=== PATIENT | female | born 1930 | race Caucasian/White ===

== ENCOUNTER 2017-03-26 19:02 | Inpatient (IN) | payer OTHER, MEDICARE ==
[2017-03-26 19:39] LABS: ADD MAN DIFF? NO
[2017-03-26 19:41] LABS: BASO # 0.1 x10^3/uL (0.0-0.2); BASO % 1 % (0-3); EOS # 0.2 x10^3/uL (0.0-0.7); EOS % 2 % (0-3); HEMATOCRIT 39.2 % (36.0-47.0); LYMPH # 1.4 x10^3/uL (1.0-4.8); LYMPH % 15 % (24-48); MEAN CORPUSCULAR HEMOGLOBIN 33 pg (25-35); MEAN CORPUSCULAR HGB CONC 33 g/dL (31-37); MEAN CORPUSCULAR VOLUME 100 fL (79-100); MONO # 0.7 x10^3/uL (0.0-1.1); MONO % 8 % (0-9); NEUT # 7.2 x10^3uL (1.8-7.7); NEUT % 75 % (31-73); PLATELET COUNT 224 x10^3/uL (140-400); RED BLOOD COUNT 3.94 x10^6/uL (3.50-5.40); RED CELL DISTRIBUTION WIDTH 13.8 % (11.5-14.5); WHITE BLOOD COUNT 9.6 x10^3/uL (4.0-11.0)
[2017-03-26] MEDS: IV NORMAL SALINE 1000ML BAG 1,000 ML IV ×2 (19:45→22:37)
[2017-03-26] MEDS: IPRATRPIUM/ALBUTEROL 0.5/2.5MG 3 ML NEBU. NEB (19:51)
[2017-03-26 20:18] LABS: ANION GAP 7 (6-14); BLOOD UREA NITROGEN 38 mg/dL (7-20); BUN/CREATININE RATIO 35 (6-20); CALCIUM 9.3 mg/dL (8.5-10.1); CARBON DIOXIDE 32 mmol/L (21-32); CHLORIDE 103 mmol/L (98-107); CREATININE 1.1 mg/dL (0.6-1.0); GLUCOSE 121 mg/dL (70-99); POTASSIUM 4.1 mmol/L (3.5-5.1); SODIUM 142 mmol/L (136-145)
[2017-03-26 20:24] LABS: ALBUMIN 3.4 g/dL (3.4-5.0); ALK PHOS 85 U/L (46-116); ALT (SGPT) 30 U/L (14-59); AST (SGOT) 17 U/L (15-37); TOTAL BILIRUBIN 0.3 mg/dL (0.2-1.0); TOTAL PROTEIN 6.8 g/dL (6.4-8.2)
[2017-03-26 20:25] LABS: INFLUENZA A PATIENT NEGATIVE (NEGATIVE); INFLUENZA B PATIENT NEGATIVE (NEGATIVE); OBC FLU VALID
[2017-03-26 20:26] LABS: TROPONINI < 0.017 ng/mL (0.000-0.055)
[2017-03-26 20:32] LABS: NT-PRO BNP 761 pg/mL (0-449)
[2017-03-26 20:32] LABS: CREATINE KINASE 28 U/L (26-192)
[2017-03-26 20:33] LABS: CKMB MASS < 0.5 ng/mL (0.0-3.6)
[2017-03-26] MEDS ORDERED: ONDANSETRON PF 4 MG/2 ML VIAL. IV (21:15)
[2017-03-27 00:57] LABS: BILIRUBIN,URINE NEGATIVE (NEG); CLARITY,URINE CLEAR; COLOR,URINE YELLOW; GLUCOSE,URINE NEGATIVE (NEG); NITRITE,URINE NEGATIVE (NEG); PH,URINE 6.5; PROTEIN,URINE NEGATIVE (NEG-TRACE)
[2017-03-27 01:02] LABS: BACTERIA,URINE MANY /HPF (0-FEW); RBC,URINE 0 /HPF (0-2); SQUAMOUS EPITHELIAL CELL,UR OCC /LPF
[2017-03-27] MEDS: ACETAMINOPHEN 325 MG TABLET. PO ×3 (01:32→21:16)
[2017-03-27 03:35] LABS: ADD MAN DIFF? NO
[2017-03-27 03:41] LABS: BASO # 0.1 x10^3/uL (0.0-0.2); BASO % 1 % (0-3); EOS # 0.1 x10^3/uL (0.0-0.7); EOS % 2 % (0-3); HEMOGLOBIN 11.7 g/dL (12.0-15.5); LYMPH # 1.4 x10^3/uL (1.0-4.8); LYMPH % 21 % (24-48); MEAN CORPUSCULAR HEMOGLOBIN 33 pg (25-35); MEAN CORPUSCULAR HGB CONC 33 g/dL (31-37); MEAN CORPUSCULAR VOLUME 99 fL (79-100); MONO # 0.7 x10^3/uL (0.0-1.1); MONO % 10 % (0-9); NEUT # 4.6 x10^3uL (1.8-7.7); NEUT % 67 % (31-73); PLATELET COUNT 181 x10^3/uL (140-400); RED BLOOD COUNT 3.54 x10^6/uL (3.50-5.40); RED CELL DISTRIBUTION WIDTH 13.5 % (11.5-14.5); WHITE BLOOD COUNT 6.9 x10^3/uL (4.0-11.0)
[2017-03-27 04:07] LABS: ANION GAP 7 (6-14); BLOOD UREA NITROGEN 33 mg/dL (7-20); CARBON DIOXIDE 31 mmol/L (21-32); CHLORIDE 106 mmol/L (98-107); GFR 52.4; GLUCOSE 104 mg/dL (70-99); POTASSIUM 3.6 mmol/L (3.5-5.1); SODIUM 144 mmol/L (136-145)
[2017-03-27] MEDS: IPRATRPIUM/ALBUTEROL 0.5/2.5MG 3 ML NEBU. NEB ×4 (07:50→20:29)
[2017-03-27] MEDS: IV NORMAL SALINE 1000ML BAG 1,000 ML IV (16:54)
[2017-03-27] MEDS ORDERED: CLOTRIMAZOLE 1% TOPICAL CREAM 15GM TUBE. TP (18:30)
[2017-03-27] MEDS ORDERED: NITROGLYCERIN SUBLINGUAL 0.4 MG BOTTLE OF 25. SL (18:30)
[2017-03-27] MEDS ORDERED: FLUTICASONE 50MCG/NASAL SPRAY 16GM BOTTLE. NS (18:30)
[2017-03-27] MEDS ORDERED: CITALOPRAM 20 MG TABLET. PO (19:00)
[2017-03-27] MEDS: SIMETHICONE 80 MG TAB.CHEW PO (21:16)
[2017-03-27] MEDS: CITALOPRAM 10 MG TABLET. PO (21:16)
[2017-03-27] MEDS: FUROSEMIDE 20 MG/2 ML VIAL. IVP (21:16)
[2017-03-27] MEDS: CARVEDILOL 12.5 MG TABLET. PO (21:17)
[2017-03-27] MEDS: ENOXAPARIN 40 MG/0.4 ML SYRINGE. SQ (21:17)
[2017-03-28 04:31] LABS: ANION GAP 7 (6-14); BLOOD UREA NITROGEN 27 mg/dL (7-20); CALCIUM 8.9 mg/dL (8.5-10.1); CARBON DIOXIDE 31 mmol/L (21-32); CHLORIDE 106 mmol/L (98-107); CREATININE 0.9 mg/dL (0.6-1.0); GFR 59.2; GLUCOSE 101 mg/dL (70-99); POTASSIUM 3.8 mmol/L (3.5-5.1); SODIUM 144 mmol/L (136-145)
[2017-03-28 05:15] LABS: ADD MAN DIFF? NO
[2017-03-28 05:33] LABS: BASO % 1 % (0-3); EOS # 0.1 x10^3/uL (0.0-0.7); EOS % 2 % (0-3); HEMATOCRIT 34.5 % (36.0-47.0); HEMOGLOBIN 11.4 g/dL (12.0-15.5); LYMPH # 1.7 x10^3/uL (1.0-4.8); LYMPH % 26 % (24-48); MEAN CORPUSCULAR HEMOGLOBIN 33 pg (25-35); MEAN CORPUSCULAR HGB CONC 33 g/dL (31-37); MEAN CORPUSCULAR VOLUME 100 fL (79-100); MONO # 0.6 x10^3/uL (0.0-1.1); MONO % 9 % (0-9); NEUT % 62 % (31-73); PLATELET COUNT 170 x10^3/uL (140-400); RED BLOOD COUNT 3.44 x10^6/uL (3.50-5.40); RED CELL DISTRIBUTION WIDTH 13.6 % (11.5-14.5); WHITE BLOOD COUNT 6.4 x10^3/uL (4.0-11.0)
[2017-03-28] MEDS: LEVOTHYROXINE 100 MCG TABLET PO (06:20)
[2017-03-28] MEDS: IPRATRPIUM/ALBUTEROL 0.5/2.5MG 3 ML NEBU. NEB (07:06)
[2017-03-28] MEDS: POLYETHYLENE GLYCOL 3350 17 GM PACKET. PO (09:12)
[2017-03-28] MEDS: FUROSEMIDE 20 MG/2 ML VIAL. IVP (09:12)
[2017-03-28] MEDS: LOSARTAN POTASSIUM 50 MG TABLET. PO (09:12)
[2017-03-28] MEDS: CARVEDILOL 12.5 MG TABLET. PO ×2 (09:12→17:39)
[2017-03-28] MEDS: ASPIRIN ENTERIC COATED 81 MG TABLET.DR. PO (09:12)
[2017-03-28] MEDS: POTASSIUM CHLORIDE 10 MEQ TABLET.ER. PO (09:13)
[2017-03-28] MEDS: SIMETHICONE 80 MG TAB.CHEW PO ×2 (09:13→20:35)
[2017-03-28] MEDS: ACETAMINOPHEN 325 MG TABLET. PO ×3 (09:13→20:35)
[2017-03-28] MEDS: PANTOPRAZOLE 40 MG TABLET.DR. PO ×2 (09:13→17:39)
[2017-03-28] MEDS: MULTIVITAMIN with MINERAL TABLET. PO (09:13)
[2017-03-28] MEDS: ASCORBIC ACID 500 MG TABLET PO (12:10)
[2017-03-28] MEDS: CHOLECALCIFEROL (VITAMIN D3) 1,000 UNIT TABLET PO (12:10)
[2017-03-28] MEDS: FUROSEMIDE 40 MG TABLET. PO (12:10)
[2017-03-28 12:14] LABS: VITAMIN-B12 862 pg/mL (247-911)
[2017-03-28] MEDS ORDERED: ONDANSETRON ODT 4 MG TAB.RAPDIS. PO (13:45)
[2017-03-28] MEDS ORDERED: ONDANSETRON PF 4 MG/2 ML VIAL. IV (13:45)
[2017-03-28] MEDS ORDERED: NON FORMULARY ITEM (Melatonin 5 MG) PO (17:00)
[2017-03-28] MEDS: CITALOPRAM 10 MG TABLET. PO (17:40)
[2017-03-28] MEDS: FERROUS SULFATE 325 MG TABLET. PO (17:40)
[2017-03-28 19:43] LABS: CREATINE KINASE 35 U/L (26-192)
[2017-03-28] MEDS: LACTOBACILLUS RHAMNOSUS GG 1 CAPSULE. PO (20:35)
[2017-03-28] MEDS: ENOXAPARIN 40 MG/0.4 ML SYRINGE. SQ (20:36)
[2017-03-28] MEDS: diphenhydrAMINE HCL 25 MG CAPSULE PO (22:50)
[2017-03-29] MEDS: LEVOTHYROXINE 100 MCG TABLET PO (05:55)
[2017-03-29] MEDS: PANTOPRAZOLE 40 MG TABLET.DR. PO (07:46)
[2017-03-29] MEDS: LACTOBACILLUS RHAMNOSUS GG 1 CAPSULE. PO (09:30)
[2017-03-29] MEDS: ASPIRIN ENTERIC COATED 81 MG TABLET.DR. PO (09:30)
[2017-03-29] MEDS: FUROSEMIDE 40 MG TABLET. PO (09:30)
[2017-03-29] MEDS: MULTIVITAMIN with MINERAL TABLET. PO (09:31)
[2017-03-29] MEDS: ACETAMINOPHEN 325 MG TABLET. PO (09:31)
[2017-03-29] MEDS: POTASSIUM CHLORIDE 10 MEQ TABLET.ER. PO (09:31)
[2017-03-29] MEDS: CARVEDILOL 12.5 MG TABLET. PO (09:31)
[2017-03-29] MEDS: SIMETHICONE 80 MG TAB.CHEW PO (09:32)
[2017-03-29] MEDS: LOSARTAN POTASSIUM 50 MG TABLET. PO (09:32)
[2017-03-29] MEDS: POLYETHYLENE GLYCOL 3350 17 GM PACKET. PO (09:32)
[2017-03-29] MEDS: CHOLECALCIFEROL (VITAMIN D3) 1,000 UNIT TABLET PO (12:13)
[2017-03-29] MEDS: ASCORBIC ACID 500 MG TABLET PO (12:13)
== END 2017-03-29 12:37 | disposition home or self-care (01) | DRG 291 ==
LOC: ER 19:02 → 5 NORTH 21:24
DX: I11.0 Hypertensive heart disease with heart failure (principal); G93.41 Metabolic encephalopathy; I42.8 Other cardiomyopathies; F03.90 Unspecified dementia, unspecified severity, without behavioral disturbance, psychotic disturbance, mood disturbance, and anxiety; M41.85 Other forms of scoliosis, thoracolumbar region; J20.9 Acute bronchitis, unspecified; N39.0 Urinary tract infection, site not specified; I50.23 Acute on chronic systolic (congestive) heart failure; I35.1 Nonrheumatic aortic (valve) insufficiency; K59.00 Constipation, unspecified; E03.9 Hypothyroidism, unspecified; J06.9 Acute upper respiratory infection, unspecified; Z66 Do not resuscitate; Z96.653 Presence of artificial knee joint, bilateral; K57.90 Diverticulosis of intestine, part unspecified, without perforation or abscess without bleeding; M19.90 Unspecified osteoarthritis, unspecified site; G93.0 Cerebral cysts; I25.10 Atherosclerotic heart disease of native coronary artery without angina pectoris; Z83.49 Family history of other endocrine, nutritional and metabolic diseases; Z88.6 Allergy status to analgesic agent; Z88.4 Allergy status to anesthetic agent; Z88.0 Allergy status to penicillin; Z88.8 Allergy status to other drugs, medicaments and biological substances; Z90.710 Acquired absence of both cervix and uterus
CPT/HCPCS: 36415; 70450; 70551; 71045; 80048; 80053; 81001; 82306; 82550; 82553; 82607; 83880; 84443; 84484; 85025; 87086; 87186; 87804; 87804-59; 93005; 93306; 94640; 94760; 96360; 96361; 99285; 99285-25; J1650; J1956; J7030; J7620; Q0163

== ENCOUNTER 2018-03-10 09:44 | Emergency (ER) | payer OTHER ==
[~2018-03-10] VITALS: Ht 137.2 cm; Wt 68.5 kg
[~2018-03-10 09:44] MED LIST: ACET325T9 PO; ACET500T68 PO; ASCO500C PO; ASPI-482 PO; CARB15DR3 EACHEYE; CARV12.5 PO; CHOL100014 PO; CLOT15CR4 TP; DOCU-109 PO; ESOM40CA PO; FERR325T58 PO; FLUT16SP NS; FURO-68 PO; HYDR-2867 PO; IPRA0.2S5 NEB; ISOS30TA4 PO; LEVO137T2 PO; LEVO250T25 PO; LEXAPRO20 MG PO; LOSA-73 PO; MELA3TAB2 PO; MULT1TAB97 PO; NITR0.4T22 SL; POLY17PO29 PO; POTA10TA12 PO; SIME180C9 PO; SIMV10TA PO; SPIR25TA PO; TRAM50TA PO
[2018-03-10 10:06] VITALS: BP 156/69
[2018-03-10] MEDS ORDERED: CLOB15CR TP (10:49)
[2018-03-10] MEDS ORDERED: HYDR-3164 PO (10:53)
--- NOTE | 2018-03-10 10:54 | PHYS DOC ---
Past Medical History Past Medical History: Angina, CHF, Diverticulitis, Hypertension, Hypothyroid, UTI, Other Additional Past Medical Histor: gastritis, cellulitis, scoloiosis, siadh Past Surgical History: Hysterectomy, Knee Replacement, Other Additional Past Surgical Histo: hernia repair, cataract Alcohol Use: None Drug Use: None Adult General Chief Complaint Chief Complaint: PELVIC PAIN [facility] HPI Patient is a 87 year old female who presents with vaginal pain 3 weeks. The patient was treated by the primary care provider for the constant. She has used multiple creams such as Estrace, zinc oxide and medication for yeast infections. Nothing has helped with her symptoms. She does have an appointment with gynecology scheduled for March. She does not feel like she can wait for that long with the amount of pain that she is having. She denies vaginal discharge. Review of Systems Review of Systems Constitutional: Denies fever or chills [] Respiratory: Denies cough or shortness of breath [] Cardiovascular: No additional information not addressed in HPI [] GI: Denies abdominal pain, nausea, vomiting, bloody stools or diarrhea [] : See history of present illness Musculoskeletal: Denies back pain or joint pain [] Integument: Denies rash or skin lesions [] Neurologic: Denies headache, focal weakness or sensory changes [] Endocrine: Denies polyuria or polydipsia [] All other systems were reviewed and found to be within normal limits, except as documented in this note. Allergies Allergies Allergies Coded Allergies Type Severity Reaction Last Updated Verified Penicillins Allergy Severe Anaphylaxis 03/26/17 Yes DAI Inhibitors Allergy Intermediate Palpitations 03/26/17 Yes procaine Allergy Intermediate NOVOCAINE = SWELLING 03/26/17 Yes codeine Allergy Mild Nausea 03/26/17 Yes Physical Exam Physical Exam Constitutional: Well developed, well nourished, no acute distress, non-toxic appearance. [] Cardiovascular:Heart rate regular rhythm, no murmur [] Lungs & Thorax: Bilateral breath sounds clear to auscultation [] Abdomen: Bowel sounds normal, soft, no tenderness, no masses, no pulsatile masses. [] Skin: Warm, dry, no erythema, no rash. [] Back: No tenderness, no CVA tenderness. [] Extremities: No tenderness, no cyanosis, no clubbing, ROM intact, no edema. [] Neurologic: Alert and oriented X 3, normal motor function, normal sensory function, no focal deficits noted. [] Psychologic: Affect normal, judgement normal, mood normal. [] Current Patient Data Vital Signs Vital Signs Date Time Temp Pulse Resp B/P (MAP) Pulse Ox O2 Delivery O2 Flow Rate FiO2 03/10/18 10:06 97.7 60 18 156/69 (98) 98 Nasal Cannula 2.0 97.7 EKG EKG [] Radiology/Procedures Radiology/Procedures [] Pelvic Exam: Section Weaver present Abdomen: Nontender External Genitalia: Erythematous Skin that is coated and zinc oxide Speculum: Flood vaginal mucosa, normal cervical discharge, I was unable to fully insert the speculum due to pain Bimanual: Extreme tenderness with a small focal area at approximately 12: 00, unable to assess CMT Course & Med Decision Making Course & Med Decision Making Pertinent Labs and Imaging studies reviewed. (See chart for details) []Dr. Montiel was consulted in the care of this patient. He suggested starting her on a steroid cream and he will see her in office on 03/13/18 at 10 AM. The patient is in agreement with this plan. She does have tramadol as a home medication. The Sister that is with her states that this is not controlling her pain at this point. I did add in [place] to help assist with pain control. Dragon Disclaimer Dragon Disclaimer This electronic medical record was generated, in whole or in part, using a voice recognition dictation system. Departure Departure Impression: Primary Impression: Vaginal pain Disposition: 01 HOME, SELF-CARE Condition: STABLE Referrals: AGGIE ROBLES MD (PCP) EDVIN MONTIEL MD Additional Instructions: Use the cream 3 times a day. Take the pain medication as directed. Do not drive or operate heavy machinery while taking pain medication. Follow-up with Dr. Montiel on 03/13/2018 at 10 AM. If worsening return to the emergency department. Scripts Hydrocodone/Apap 5-325 (NORCO 5-325 TABLET) 1 Each Tablet 1 TAB PO PRN Q6HRS PRN for PAIN, #14 TAB 0 Refills Prov: SILAS INGRAM DREDGE OPERATOR 03/10/18 Clobetasol Propionate (CLOBETASOL PROPIONATE) 15 Gm Cream..g. 1 GORDON TP TID for inflammation, #30 GM Prov: SILAS INGRAM DREDGE OPERATOR 03/10/18 SILAS INGRAM DREDGE OPERATOR Mar 10, 2018 10:54
== END 2018-03-10 11:15 | disposition home or self-care (01) ==
LOC: ER 09:44
DX: R10.2 Pelvic and perineal pain (principal); I11.0 Hypertensive heart disease with heart failure; I50.9 Heart failure, unspecified; I20.9 Angina pectoris, unspecified; E03.9 Hypothyroidism, unspecified; Z87.440 Personal history of urinary (tract) infections; Z90.710 Acquired absence of both cervix and uterus; Z88.0 Allergy status to penicillin; Z88.4 Allergy status to anesthetic agent; Z88.8 Allergy status to other drugs, medicaments and biological substances
CPT/HCPCS: 99283